=== PATIENT | male | born 1975 | race Caucasian/White ===

== ENCOUNTER → 2020-09-18 13:34 | Outpatient (BNVA) | payer OTHER, SELFPAY | PROVIDERS: PCP Nurse Practitioner Family; Referring Provider Nurse Practitioner Family; Visit Provider Internal Medicine Cardiovascular Disease | DX: I49.3 Ventricular premature depolarization (principal) | CPT/HCPCS: 93005; 99212 ==

== ENCOUNTER 2020-10-06 19:15 | Emergency (ER) | payer OTHER, SELFPAY ==
[2020-10-06 19:16] VITALS: BP 121/85; PULSE 82; RESP 16; TEMP 36.8; O2SAT 97; BMI 28.5
[2020-10-06 19:44] VITALS: BP 106/72; PULSE 74
--- NOTE | 2020-10-06 19:45 | ED_ITS ---
HPI - Nausea/Vomiting/Diarrhea General Chief complaint: Nausea/Vomiting/Diarrhea Stated complaint: Nausea Time Seen by Provider: 10/06/20 19:41 Source: patient Mode of arrival: ambulatory Limitations: no limitations History of Present Illness HPI Narrative: 44-year-old male, started with nonbloody watery diarrhea 5 days ago, with intermittent nausea for the past 5 days, no vomiting, no abdominal pain. Patient just had a new puppy in the house 5 days ago and wonder if there is correlation between his symptoms and having the new dog in the house, patient also stated that he has 10 lb of unintentional weight loss over the past month. Patient overall feel flu-like symptoms, patient decline exposure to sick cont acts or recent travel. Patient states that he in the process of looking for PCP. Related Data Previous Rx's Medication Instructions Recorded flecainide 100 mg tablet 100 mg PO BID #60 tab 09/18/20 propranolol 80 mg capsule,24 80 mg PO .q12 #60 cap 09/18/20 hr,extended release Allergies Allergy/AdvReac Type Severity Reaction Status Date / Time penicillin V Allergy Unknown hot,nausea,dizzy, Verified 10/06/20 19:22 rash Penicillins [PENICILLINS] AdvReac Intermediate NAUSEA/HEADACHE Verified 10/06/20 19:22 FEVER Review of Systems Review of Systems: All other systems are reviewed and are negative Constitutional: Reports as per HPI and Reports no additional constitutional complaints Eyes: Reports as per HPI and Reports no additional eye complaints Reports system reviewed and no additional complaints, except as documented Cardiovascular: Reports as per HPI and Reports no additional cardiovascular complaints Respiratory: Reports as per HPI and Reports no additional respiratory complaints Gastrointestinal: Reports as per HPI and Reports no additional gastrointestinal complaints Genitourinary: Reports no additional female genitourinary complaints Musculoskeletal: Reports no additional musculoskeletal complaints Skin/Breast: Reports system reviewed and no additional complaints, except as docu Psychiatric: Reports no additional psychiatric complaints Endocrine: Reports no additional endocrine complaints Hematologic/Lymphatic: Reports no additional hematologic/lymphatic complaints Allergic/Immunologic: Reports no additional allergic/immunologic complaints Reports system reviewed and no additional complaints, except as documented and Reports Abnormal speech present [facility] Past Medical History Medical History (Updated 10/06/20 @ 22:42 by Wyatt Blair MD) History of ear infections Psoriasis PVC (premature ventricular contraction) Surgical History Hx of tonsillectomy Social History Social History (Updated 09/18/20 @ 13:50 by Rosalia Osorio [facility]) Alcohol intake: unknown Smoking Status: Current every day smoker Use of substances other than those prescribed or required for medical reasons: Yes Substance Use Type: Marijuana Advance Directives: No Advance Directives Information Provided: Yes Physical Exam Vital Signs: Vital Signs: Last Vital Signs Temp 98.3 F 10/06/20 22:00 Pulse 90 10/06/20 22:00 Resp 15 10/06/20 22:00 BP 118/94 H 10/06/20 22:00 Pulse Ox 98 10/06/20 22:00 Body Mass Index 28.5 Vital signs have been reviewed as normal and appeared to be correct. Blood pressure normal. Heart rate normal. Respiration rate normal. Temperature normal. Oxygen saturation normal. Appearance: Alert. Oriented X3. No acute distress. Head: Normal external exam. Normocephalic. Atraumatic. No Cantrell signs noted. No raccoon eyes noted Eyes: PERRLA. EOMI. Conjunctiva and sclera normal. Eyelids normal. ENT: EAC normal. TM's Normal. Pharynx normal. Uvula midline. Moist mucous membranes. No trismus noted. No drooling noted. No muffled voice noted. Neck: Normal inspection. Neck supple. FROM. No adenopathy. Thyroid Normal. No meningeal signs. No neck mass noted. CVS: Normal heart rate and rhythm. Heart sound normal. No murmurs noted. Pulses normal throughout. Respiratory: No respiratory distress. Painless inspiration. Breath sounds normal. No wheezes/rales/rhonchi noted. Chest nontender. No accessory muscle usage noted or decreased air movement noted. Abdomen: Soft and nontender. Bowel sounds normal in all 4 quadrants. No distention noted. No organomegaly noted. No visible injury noted. Back: No CVA tenderness. Full range of motion noted. Skin: Skin warm and dry. Normal skin color. Normal skin turgor. No rashes/lesions/lacerations noted. Extremities: No lower extremity edema. Extremities exhibit normal range of motion. Extremities nontender. Neuro: Oriented X 3. No motor deficit. No sensory deficit. Reflexes normal. Course Course Course Narrative: This is a 44-year-old male who came in with 5 days of nonspecific symptoms of intermittent nonbloody water diarrhea and nausea, juan ent appear anxious during the interview, patient do not currently have PCP. Patient was instructed to find PCP by calling insurance company, no further medical intervention is needed at this point, will discharge the patient. MDM - Nausea/Vomiting/Diarrhea Lab Data Result diagrams: 10/06/20 20:08 10/06/20 20:08 Labs: Lab Results 10/06/20 10/06/20 10/06/20 Range/Units 20:08 20:08 20:08 WBC 9.9 (4.8-10.8) X10*3/uL RBC 4.73 (4.60-5.80) X10*6/uL Hgb 15.5 (14.0-18.0) g/dl Hct 44.4 (42-52) % MCV 93.9 (80-98) fL MCH 32.8 (27.0-33.0) pg MCHC 34.9 (31.0-36.0) g/dl RDW 12.0 (11.0-16.0) % Plt Count 172 (160-400) X10*3/uL MPV 10.5 (9.4-12.4) fL Immature Gran % (Auto) 0.4 (0.0-0.4) % Neut % (Auto) 74.4 H (45-73) % Lymph % (Auto) 15.8 L (20-40) % [place] % (Auto) 7.8 (2-11) % Eos % (Auto) 1.3 (0-4) % Baso % (Auto) 0.3 (0-2) % Lymph # (Auto) 1.6 (1.2-4.9) X10*3/uL [place] # (Auto) 0.8 (0.1-1.2) X10*3/uL Eos # (Auto) 0.1 (0.0-0.4) X10*3/uL Baso # (Auto) 0.0 (0.0-0.2) X10*3/uL Abs Immat Gran (auto) 0.04 H (0.00-0.03) X10*3/uL Absolute Neuts (auto) 7.3 (2.0-8.3) X10*3/uL Absolute Nucleated RBC 0.000 (0.0-0.012) X10*3/uL Nucleated RBC % (auto) 0.0 (0.0-0.2) /100WBC Sodium 139 (135-145) mmol/L Potassium 3.9 (3.3-5.1) mmol/l Chloride 106 (96-108) mmol/L Carbon Dioxide 26 (22-29) mmol/L Anion Gap 11 L (12-20) BUN 14 (9-16) mg/dL Creatinine 1.01 (0.5-1.4) mg/dL Estim Creat Clear Calc 104.3 Estimated GFR > 60 Random Glucose 118 H (60-115) mg/dL Calcium 8.5 (8.4-10.2) mg/dL Total Bilirubin 0.8 (0.0-1.0) mg/dL Direct Bilirubin 0.3 (0.0-0.5) mg/dL AST 23 (5-37) U/L ALT 20 (0-40) U/L Alkaline Phosphatase 93 (39-117) U/L Total Protein 6.2 L (6.5-8.0) g/dL Albumin 4.2 (3.5-5.0) g/dL Lipase 53 (8-78) U/L Urine Color Urine Appearance Urine pH (5.0-8.0) Ur Specific [place] (1.005-1.025) Urine Protein (NEG-TRACE) MG/DL Urine Glucose (UA) (NEG) MG/DL Urine Ketones (NEG) MG/DL Urine Blood (NEG) Urine Nitrite (NEG) Ur Leukocyte Esterase (NEG) Coronavirus (PCR) NEGATIVE (Negative) Influenza Type A (PCR) NEGATIVE (Negative) Influenza Type B (PCR) NEGATIVE (Negative) RSV RNA Qual (PCR) NEGATIVE (Negative) 10/06/20 Range/Units 20:08 WBC (4.8-10.8) X10*3/uL RBC (4.60-5.80) X10*6/uL Hgb (14.0-18.0) g/dl Hct (42-52) % MCV (80-98) fL MCH (27.0-33.0) pg MCHC (31.0-36.0) g/dl RDW (11.0-16.0) % Plt Count (160-400) X10*3/uL MPV (9.4-12.4) fL Immature Gran % (Auto) (0.0-0.4) % Neut % (Auto) (45-73) % Lymph % (Auto) (20-40) % [place] % (Auto) (2-11) % Eos % (Auto) (0-4) % Baso % (Auto) (0-2) % Lymph # (Auto) (1.2-4.9) X10*3/uL [place] # (Auto) (0.1-1.2) X10*3/uL Eos # (Auto) (0.0-0.4) X10*3/uL Baso # (Auto) (0.0-0.2) X10*3/uL Abs Immat Gran (auto) (0.00-0.03) X10*3/uL Absolute Neuts (auto) (2.0-8.3) X10*3/uL Absolute Nucleated RBC (0.0-0.012) X10*3/uL Nucleated RBC % (auto) (0.0-0.2) /100WBC Sodium (135-145) mmol/L Potassium (3.3-5.1) mmol/l Chloride (96-108) mmol/L Carbon Dioxide (22-29) mmol/L Anion Gap (12-20) BUN (9-16) mg/dL Creatinine (0.5-1.4) mg/dL Estim Creat Clear Calc Estimated GFR Random Glucose (60-115) mg/dL Calcium (8.4-10.2) mg/dL Total Bilirubin (0.0-1.0) mg/dL Direct Bilirubin (0.0-0.5) mg/dL AST (5-37) U/L ALT (0-40) U/L Alkaline Phosphatase (39-117) U/L Total Protein (6.5-8.0) g/dL Albumin (3.5-5.0) g/dL Lipase (8-78) U/L Urine Color YELLOW Urine Appearance CLEAR Urine pH 6.5 (5.0-8.0) Ur Specific [place] 1.025 (1.005-1.025) Urine Protein NEG (NEG-TRACE) MG/DL Urine Glucose (UA) NEG (NEG) MG/DL Urine Ketones 5 (NEG) MG/DL Urine Blood NEG (NEG) Urine Nitrite NEG (NEG) Ur Leukocyte Esterase NEG (NEG) Coronavirus (PCR) (Negative) Influenza Type A (PCR) (Negative) Influenza Type B (PCR) (Negative) RSV RNA Qual (PCR) (Negative) Discharge Plan Discharge Clinical Impression: Diarrhea Qualifiers: Diarrhea type: unspecified type Qualified Code(s): R19.7 - Diarrhea, unspecified Patient Disposition: Home, Self-Care Instructions: Acute Diarrhea (ED) Prescriptions: No Action propranolol 80 mg capsule,extended release 24 hr 80 mg PO .q12 Qty: 60 RF: 5 flecainide 100 mg tablet 100 mg PO BID Qty: 60 RF: 5 Referrals: Jasper Mims FNP-BC [Primary Care Provider] - 2 days
[2020-10-06 19:52] VITALS: BP 116/80; BP 122/94; PULSE 80; PULSE 81
[2020-10-06 19:54] VITALS: BP 122/94; PULSE 90; RESP 15; O2SAT 98
[2020-10-06] MEDS: 0.9 % Sodium Chloride 1,000 ML 999 ML IVCONT (20:10)
[2020-10-06 20:16] LABS: Basophils Percent Auto 0.3 % (0-2); Eosinophils Absolute Auto 0.1 X10*3/uL (0.0-0.4); Eosinophils Percent Auto 1.3 % (0-4); Hematocrit 44.4 % (42-52); Hemoglobin 15.5 g/dl (14.0-18.0); Imm Gran Abs Auto 0.04 X10*3/uL (0.00-0.03); Imm Gran Pct Auto 0.4 % (0.0-0.4); Lymphocytes Absolute Auto 1.6 X10*3/uL (1.2-4.9); Lymphocytes Percent Auto 15.8 % (20-40); MANUAL DIFF FLAG NO; Mean Corpuscular HGB Conc 34.9 g/dl (31.0-36.0); Mean Corpuscular Hemoglobin 32.8 pg (27.0-33.0); Mean Corpuscular Volume 93.9 fL (80-98); Mean Platelet Volume 10.5 fL (9.4-12.4); Monocytes Absolute Auto 0.8 X10*3/uL (0.1-1.2); Monocytes Percent Auto 7.8 % (2-11); Neutrophils Absolute Auto 7.3 X10*3/uL (2.0-8.3); Neutrophils Percent Auto 74.4 % (45-73); Platelet Count 172 X10*3/uL (160-400); Red Blood Count 4.73 X10*6/uL (4.60-5.80); White Blood Count 9.9 X10*3/uL (4.8-10.8)
[2020-10-06 20:18] LABS: Glucose Urine UA NEG (NEG); Leukocyte Esterase Urine NEG (NEG); Nitrite Urine NEG (NEG); PH 6.5 (5.0-8.0); Specific Gravity - Urine 1.025 (1.005-1.025); Urine Blood NEG (NEG); Urine Ketones 5 MG/DL (NEG); Urine Protein NEG (NEG-TRACE)
[2020-10-06 20:19] LABS: Appearance Urine CLEAR; Color Urine YELLOW
[2020-10-06 20:47] LABS: Alanine Aminotransferase 20 U/L (0-40); Albumin Level 4.2 g/dL (3.5-5.0); Alkaline Phosphatase 93 U/L (39-117); Anion Gap 11 (12-20); Aspartate Amino Transferase 23 U/L (5-37); Bilirubin Direct 0.3 mg/dL (0.0-0.5); Bilirubin Total 0.8 mg/dL (0.0-1.0); Blood Urea Nitrogen 14 mg/dL (9-16); Calcium 8.5 mg/dL (8.4-10.2); Carbon Dioxide 26 mmol/L (22-29); Chloride 106 mmol/L (96-108); Creatinine Clr Calc Pharmacy 104.3; Estimated Glomerular Filt Rate > 60; Glucose Random 118 mg/dL (60-115); Lipase 53 U/L (8-78); Potassium 3.9 mmol/l (3.3-5.1); Sodium 139 mmol/L (135-145); Total Protein 6.2 g/dL (6.5-8.0)
[2020-10-06 20:54] LABS: Influenza A PCR NEGATIVE (Negative); Influenza B PCR NEGATIVE (Negative); Resp Syncy Virus RNA Qual PCR NEGATIVE (Negative); SARS COV2 PCR INHOUSE NEGATIVE (Negative)
[2020-10-06 22:00] VITALS: BP 118/94; PULSE 90; RESP 15; TEMP 36.8; O2SAT 98
== END 2020-10-06 23:01 | disposition home or self-care (01) ==
PROVIDERS: Emergency Provider Emergency Medicine; PCP Nurse Practitioner Family
DX: R19.7 Diarrhea, unspecified (principal); F17.200 Nicotine dependence, unspecified, uncomplicated; Z71.6 Tobacco abuse counseling; Z20.828 Contact with and (suspected) exposure to other viral communicable diseases; Z79.899 Other long term (current) drug therapy
CPT/HCPCS: 0241U; 36415; 80048; 80076; 81003; 83690; 85025; 96360; 99284

== ENCOUNTER 2021-06-18 15:56 | Emergency (ER) | payer OTHER, SELFPAY ==
[2021-06-18 16:17] VITALS: BP 136/99; PULSE 83; RESP 18; TEMP 36.9; O2SAT 96; BMI 28.3
== END 2021-06-18 17:30 | disposition left against medical advice (07) ==
PROVIDERS: Emergency Provider Emergency Medicine; PCP Nurse Practitioner Family
DX: H92.01 Otalgia, right ear (principal); R11.0 Nausea; L60.0 Ingrowing nail
CPT/HCPCS: 99281; 99282

== ENCOUNTER → 2021-09-11 13:56 | Outpatient (BNVA) | payer OTHER, SELFPAY | PROVIDERS: PCP Nurse Practitioner Family; Referring Provider Nurse Practitioner Family; Visit Provider Nurse Practitioner Family | DX: I49.3 Ventricular premature depolarization (principal); R00.2 Palpitations | CPT/HCPCS: 93005 ==

== ENCOUNTER 2023-04-09 11:58 | Outpatient (REF) | payer OTHER, SELFPAY ==
[2023-04-09 13:55] LABS: MANUAL DIFF FLAG NO
[2023-04-09 14:30] LABS: Anion Gap 11 (12-20); Blood Urea Nitrogen 14 mg/dL (9-16); Calcium 9.5 mg/dL (8.4-10.2); Carbon Dioxide 24 mmol/L (22-29); Chloride 111 mmol/L (96-108); Cholesterol 130 mg/dL; Estimated Glomerular Filt Rate > 60; Glucose Random 95 mg/dL (60-115); HDL Cholesterol 29 mg/dL; LDL Cholesterol Calculated 88 mg/dl; Potassium 4.1 mmol/L (3.3-5.1); Sodium 142 mmol/L (135-145); Triglycerides 66 mg/dL
[2023-04-09 14:35] LABS: Basophils Percent Auto 0.5 % (0-2); Eosinophils Absolute Auto 0.1 X10*3/uL (0.0-0.4); Hematocrit 46.1 % (42.0-52.0); Hemoglobin 15.6 g/dl (14.0-18.0); Imm Gran Abs Auto 0.02 X10*3/uL (0.00-0.03); Imm Gran Pct Auto 0.3 % (0.0-0.4); Lymphocytes Absolute Auto 1.4 X10*3/uL (1.2-4.9); Lymphocytes Percent Auto 23.9 % (20-40); Mean Corpuscular HGB Conc 33.8 g/dl (31.0-36.0); Mean Corpuscular Hemoglobin 32.3 pg (27.0-33.0); Mean Corpuscular Volume 95.4 fL (80.0-98.0); Mean Platelet Volume 11.4 fL (9.4-12.4); Monocytes Absolute Auto 0.5 X10*3/uL (0.1-1.2); Monocytes Percent Auto 8.4 % (2-11); Neutrophils Absolute Auto 3.8 x10*3/uL (2.0-8.3); Neutrophils Percent Auto 64.9 % (45-73); Platelet Count 143 X10*3/uL (160-400); Red Blood Count 4.83 X10*6/uL (4.60-5.80); Red Cell Distribution Width 12.8 % (11.0-16.0); White Blood Count 5.9 X10*3/uL (4.8-10.8)
[2023-04-11 03:42] LABS: HBS Num1 0.26 mIU/mL (0-7.99); HBc Num1 0.08 S/CO (0.00-0.79); HBsAGNum1 0.44 S/CO (0.00-0.99); Hepatitis B Core Antibody Nonreactive (Nonreactive); Hepatitis B Surface Antigen Negative (Negative); ~Hepatitis B Surface Antibody NONREACTIVE (Nonreactive); ~Hepatitis C Antibody Nonreactive (Nonreactive)
[2023-04-11 17:33] LABS: TS Negative Control Passed; TS Panel A 0; TS Panel B 0; TS Positive Control Passed; TSpotTB Negative (Negative)
== END 2023-04-09 11:59 | disposition home or self-care (01) ==
LOC: HO.HMGCLDS 11:58
PROVIDERS: PCP Nurse Practitioner Family; Visit Provider Dermatology
DX: L40.0 Psoriasis vulgaris (principal)
CPT/HCPCS: 36415; 80048; 80061; 85025; 86481; 86704; 86706; 86803; 87340

== ENCOUNTER 2023-05-01 15:12 | Outpatient (REF) | payer OTHER, SELFPAY ==
[2023-05-01 17:16] LABS: Amphetamine Screen Urine Not Detected (Not Detect); Barbiturates, Urine Not Detected (Not Detect); Benzodiazepines Screen Urine Not Detected (Not Detect); Cannabinoid Screen Urine POSITIVE (Not Detect); Cocaine Screen Urine Not Detected (Not Detect); Fentanyl, urine Not Detected (Not Detect); Opiate Screen Urine Not Detected (Not Detect); Phencyclidine Screen Urine Not Detected (Not Detect)
[2023-05-01 17:17] LABS: Alanine Aminotransferase 26 U/L (0-40); Albumin Level 4.2 g/dL (3.5-5.0); Alkaline Phosphatase 94 U/L (39-117); Anion Gap 11 (12-20); Aspartate Amino Transferase 37 U/L (5-37); Bilirubin Total 0.4 mg/dL (0.0-1.0); Blood Urea Nitrogen 12 mg/dL (9-16); Calcium 9.5 mg/dL (8.4-10.2); Carbon Dioxide 26 mmol/L (22-29); Chloride 109 mmol/L (96-108); Estimated Glomerular Filt Rate > 60; Glucose Random 83 mg/dL (60-115); Potassium 3.9 mmol/L (3.3-5.1); Sodium 142 mmol/L (135-145); Total Protein 6.7 g/dL (6.5-8.0)
[2023-05-01 17:37] LABS: T4 Thyroxine 6.6 ug/dL (4.5-12.0)
[2023-05-04 08:13] LABS: Triiodothyronine T3 Free 3.6 pg/mL (2.3-4.2)
== END 2023-05-01 15:13 | disposition home or self-care (01) ==
LOC: HO.HMGCLDS 15:12
PROVIDERS: Visit Provider Nurse Practitioner Psychiatric/Mental Health
DX: Z79.899 Other long term (current) drug therapy (principal)
CPT/HCPCS: 80053; 80307; 84436; 84481

== ENCOUNTER 2023-11-20 19:54 | Emergency (ER) | payer OTHER, SELFPAY ==
[2023-11-20 20:16] VITALS: BP 132/97; PULSE 80; RESP 20; TEMP 36.6; O2SAT 97; BMI 28.4
[2023-11-20 21:11] LABS: Appearance Urine Clear; Color Urine Dark Yellow; Glucose Urine UA Negative (Negative); Leukocyte Esterase Urine Negative (Negative); Nitrite Urine Negative (Negative); PH 5.5 (5.0-9.0); Specific Gravity - Urine >= 1.030 (1.005-1.025); Urine Blood Negative (Negative); Urine Ketones Trace mg/dL (Negative); Urine Protein Negative (Neg-Trace)
--- NOTE | 2023-11-20 22:24 | ED_ITS ---
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 Patient also been having a difficulty urinating with painful ejaculation for the past year. Related Data Previous Rx's Medication Instructions Recorded levocetirizine 5 mg tablet (Xyzal) 5 mg PO DAILY 14 days #14 tabs 11/09/22 prednisone 20 mg tablet 20 mg PO DAILY 5 days #5 tabs 11/09/22 sulfamethoxazole 800 1 tab PO Q12H #20 tabs 11/20/22 mg-trimethoprim 160 mg tablet (Bactrim DS) amoxicillin 875 mg-potassium 1 tab PO Q12H 10 days #20 tabs 11/21/22 clavulanate 125 mg tablet propranolol 120 mg capsule,24 120 mg PO DAILY #90 caps 09/23/23 hr,extended release flecainide 100 mg tablet 100 mg PO BID 90 days #180 tabs 11/13/23 amoxicillin 875 mg-potassium 1 tab PO BID #14 tabs 11/20/23 clavulanate 125 mg tablet ofloxacin 0.3 % ear drops 10 drp otic (ears) DAILY 7 days 11/20/23 #10 mL oxycodone 5 mg tablet 5 mg PO Q8H PRN pain #5 tabs 11/20/23 Allergies Allergy/AdvReac Type Severity Reaction Status Date / Time penicillin V Allergy Unknown hot,nausea,dizzy, Verified 11/20/22 15:57 rash Penicillins [PENICILLINS] AdvReac Intermediate NAUSEA/HEADACHE Verified 11/20/22 15:57 FEVER Review of Systems Review of Systems: All other systems are reviewed and are negative Constitutional: Reports as per HPI and Reports no additional constitutional complaints Eyes: Reports as per HPI and Reports no additional eye complaints Reports system reviewed and no additional complaints, except as documented Cardiovascular: Reports as per HPI and Reports no additional cardiovascular complaints Respiratory: Reports as per HPI and Reports no additional respiratory complaints Gastrointestinal: Reports as per HPI and Reports no additional gastrointestinal complaints Genitourinary: Reports no additional female genitourinary complaints Musculoskeletal: Reports no additional musculoskeletal complaints Skin/Breast: Reports system reviewed and no additional complaints, except as docu Psychiatric: Reports no additional psychiatric complaints Endocrine: Reports no additional endocrine complaints Hematologic/Lymphatic: Reports no additional hematologic/lymphatic complaints Allergic/Immunologic: Reports no additional allergic/immunologic complaints Reports system reviewed and no additional complaints, except as documented and Reports Abnormal speech present [facility] Past Medical History Medical History Psoriasis History of ear infections PVC (premature ventricular contraction) Surgical History Hx of tonsillectomy Social History Social History Alcohol intake: unknown Substance Use Type: Marijuana Advance Directives: No Advance Directives Information Provided: No Physical Exam ED Vital Signs: Vital Signs - 24 hr 11/20/23 20:16 Temperature 97.8 F Pulse Rate 80 Respiratory Rate 20 Blood Pressure 132/97 H Pulse Oximetry 97 Oxygen Delivery Method Room Air BMI result Body Mass Index 28.4 Vital signs have been reviewed and appear to be correct. Blood pressure elevated. Heart rate normal. Respiratory rate normal. Temperature normal. Oxygen saturation normal. Appearance: Alert. Oriented X3. No acute distress. Head: Normal external exam. Normocephalic. Atraumatic. No Cantrell signs noted. No raccoon eyes noted Eyes: PERRLA. EOMI. Conjunctiva and sclera normal. Eyelids normal. ENT: Old scars on bilateral TM, swelling and tenderness in the right external auditory canal, erythema of the right TM, Pharynx normal. Uvula midline. Moist mucous membranes. No trismus noted. No drooling noted. No muffled voice noted. Neck: Normal inspection. Neck supple. FROM. No adenopathy. Thyroid Normal. No meningeal signs. No neck mass noted. CVS: Normal heart rate and rhythm. Heart sound normal. No murmurs noted. Pulses normal throughout. Respiratory: No respiratory distress. Painless inspiration. Breath sounds normal. No wheezes/rales/rhonchi noted. Chest nontender. No accessory muscle usage noted or decreased air movement noted. Abdomen: Soft and nontender. Bowel sounds normal in all 4 quadrants. No distention noted. No organomegaly noted. No visible injury noted. Back: No CVA tenderness. Full range of motion noted. Skin: Skin warm and dry. Normal skin color. Normal skin turgor. No rashes/lesions/lacerations noted. Extremities: No lower extremity edema. Extremities exhibit normal range of motion. Extremities nontender. Neuro: Oriented X 3. Cranial nerve exam: II-XII are grossly intact No motor deficit. No sensory deficit. Reflexes normal. Course Reevaluation(s) Reevaluation #1: Chronic dysuria and painful ejaculation was unremarkable UA patient to follow up with Urology Dr. Rodriguez. Acute on chronic ear infection will treat with ofloxacin ear drops and Augmentin (reported that he used Augmentin in the past without allergic reaction). Oxycodone # 10. For pain control. Time: 22:29 Medical Decision Making Differential Diagnosis Differential Diagnoses: The differential diagnosis associated with the presentation includes (UTI, otitis externa, otitis interna, perforated TM.) Admission/Observation Consideration of admission/observation: Escalation of care including admission/observation considered Lab Data MDM Lab Attestation statement: I reviewed the patient's lab results. Labs: Lab Results 11/20/23 Range/Units 20:54 Urine Color Dark Yellow Urine Appearance Clear Urine pH 5.5 (5.0-9.0) Ur Specific [place] >= 1.030 H (1.005-1.025) Urine Protein Negative (Neg-Trace) mg/dL Urine Glucose (UA) Negative (Negative) mg/dL Urine Ketones Trace (Negative) mg/dL Urine Blood Negative (Negative) Urine Nitrite Negative (Negative) Ur Leukocyte Esterase Negative (Negative) Discharge Plan Discharge Clinical Impression: Dysuria, Otitis media, Otitis externa Patient Disposition: Home, Self-Care Instructions: Otitis Externa (ED), Ear Infection (ED), Dysuria (ED) Prescriptions: New amoxicillin-pot clavulanate 875-125 mg tablet 1 tab PO BID Qty: 14 0RF ofloxacin 0.3 % drops 10 drp otic (ears) DAILY 7 Days Qty: 10 0RF oxycodone 5 mg tablet 5 mg PO Q8H PRN (Reason: pain) Qty: 5 0RF Rx Instructions: Partial Fill upon patient request. No Action propranolol 120 mg capsule,extended release 24 hr 120 mg PO DAILY Qty: 90 0RF Rx Instructions: LAST REFILL - OVERDUE FOR APPT. PLEASE CALL [phone] TO SCHEDULE. You can also opt to get future refills from your PCP. Thank you. flecainide 100 mg tablet 100 mg PO BID 90 Days Qty: 180 0RF Rx Instructions: LAST REFILL. OVERDUE FOR APPT. PLEASE CALL [phone] TO SCHEDULE AN APPT SO WE CAN REFILL THIS MED. prednisone 20 mg tablet 20 mg PO DAILY 5 Days Qty: 5 0RF levocetirizine [Xyzal] 5 mg tablet 5 mg PO DAILY 14 Days Qty: 14 0RF sulfamethoxazole-trimethoprim [Bactrim DS] 800-160 mg tablet 1 tab PO Q12H Qty: 20 0RF amoxicillin-pot clavulanate 875-125 mg tablet 1 tab PO Q12H 10 Days Qty: 20 0RF Referrals: Srinivas Rodriguez MD [Physician] - Jasper Mims [employer]- [Primary Care Provider] - Blayne Martell [Physician] -
[2023-11-20] MEDS: oxyCODONE HCl Immed Release 5 MG TABLET PO (23:01)
[2023-11-20] MEDS: Amoxicillin/Potassium Clav 875 MG TABLET PO (23:01)
== END 2023-11-20 23:22 | disposition home or self-care (01) ==
PROVIDERS: Emergency Provider Emergency Medicine; PCP Nurse Practitioner Family
DX: H66.91 Otitis media, unspecified, right ear (principal); H60.91 Unspecified otitis externa, right ear; H92.01 Otalgia, right ear; R50.9 Fever, unspecified; R30.0 Dysuria; N53.12 Painful ejaculation; R39.198 Other difficulties with micturition
CPT/HCPCS: 81003; 99283

== ENCOUNTER 2024-01-12 13:51 | Outpatient (AMB) | payer OTHER, SELFPAY ==
--- NOTE | 2024-01-12 14:17 | MHC.OFFVIS ---
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 Accompanied by: Self / Same As Patient Allergies penicillin V Allergy (Unknown, Verified 01/12/24 20:54) hot,nausea,dizzy, rash Penicillins [PENICILLINS] Adverse Reaction (Intermediate, Verified 01/12/24 20:54) NAUSEA/HEADACHE FEVER Medication List - Last Reconciled 01/12/24 by AKBAR Gutierrez flecainide 100 mg PO BID 90 days gabapentin 1,200 mg PO BID ixekizumab (Taltz Autoinjector) mg subcut meloxicam 15 mg PO DAILY 30 days propranolol ER 120 mg PO DAILY sulfamethoxazole-trimethoprim 800-160 mg (Bactrim DS) 1 tab PO BID 14 days tamsulosin 0.4 mg PO BEDTIME 90 days HPI HPI Comments History of Present Illness Details Pasquale is a very pleasant 48-year-old male patient of Dr. Mims. He has a past medical history of psoriasis, recurrent ear infections, and PVC's. He presents to the office today as a new patient for ongoing lower urinary tract symptoms. Patient reports a longstanding history of urinary hesitancy, dysuria, retrograde ejaculation, and painful ejaculation. Patient reports symptoms have been present for months however feels they are intermittent however feels lately they have been worsening. He discusses having followed up with [facility] [facility] [place] ongoing recurrent ear infections he has been experiencing at which time he discussed his urological issues and recommendations were made for urology referral for further assessment evaluation. Discussed at length potential causes for lower urinary tract symptoms patient is experiencing. In office JAVI performed boggy prostate noted. Patient extremely tender on left side of the prostate when palpated otherwise no nodules or masses palpated. In office urinalysis results reviewed with the patient today. PVR 47 mL. When asked he denies incontinence, nocturia, hematuria, foul smelling urine, changes to urinary stream, flank pain, fever, and or chills. He otherwise offers no other issues or concerns at this time. [facility] Medical History Psoriasis History of ear infections PVC (premature ventricular contraction) Surgical History Hx of tonsillectomy Social History Alcohol intake: unknown Substance Use Type: Marijuana Review of Systems Const Reports as per HPI Eyes Reports no additional complaints ENT Reports as per HPI Card Reports as per HPI Resp Reports no additional complaints GI Reports no additional complaints Reports as per HPI Musc Reports no additional complaints Skin/Breast Reports as per HPI Neuro Reports no additional complaints Psych Reports no additional complaints Endo Reports no additional complaints Tito/Lymph Reports no additional complaints Aller/Immun Reports no additional complaints Physical Exam Const General: cooperative, healthy appearing, comfortable, no acute distress, well developed, alert and awake Orientation/consciousness: patient oriented x3 Limitations: no limitations HEENT Head: Yes normal to inspection, Yes normocephalic and Yes atraumatic Ears: hearing grossly normal bilaterally Eyes General: appearance normal, both eyes and all related structures Neck Neck: Yes normal visual inspection and Yes trachea midline Chest Chest palpation & inspection: normal inspection of the chest Resp Effort & Inspection: normal respiratory effort and able to speak in complete sentences Cardio Rate: regular rate GI Inspection: Yes normal to inspection General: Yes no CVA tenderness Back/Spine/Pelvis Back: no CVA tenderness Skin General skin exam: no rashes or lesions noted Neuro General: patient oriented x3 Extrem General: Yes normal to inspection Psych Appearance: grossly normal and well kempt Mental Status: mental status grossly normal Speech and movement: Normal speech and movement present and Clear speech present Affect: normal affect Attitude: cooperative Thought process: Normal thought process present Thought content: Normal thought content present Insight: Fair insight present (Psych) Judgement: Fair judgement present (Psych) Office Procedures Post Void Residual Post Residual Void Post Void Residual (PVR): 47 [id number] Void Residual by ultrasound Results AMB Urinalysis, Automated UA Leukoctes 15 Connor/uL Last Edit by Janusz Connors on 01/12/24 14:23 UA Nitrite Negative Last Edit by Janusz Connors on 01/12/24 14:23 UA Urobilinogen 0.2 mg/dL Last Edit by Janusz Connors on 01/12/24 14:23 UA Protein 30 mg/dL Last Edit by Janusz Connors on 01/12/24 14:23 UA pH 5.5 Last Edit by Janusz Vallecillonishant on 01/12/24 14:23 UA Blood 0 Otf/uL Last Edit by Nicolawilian Ruth Annnishant on 01/12/24 14:23 UA Specific [employer] 1.030 Last Edit by Nicolawilian Ruth Annnishant on 01/12/24 14:23 UA Ketone Positive Last Edit by Nicolawilian Ruth Annnishant on 01/12/24 14:23 UA Bilirubin 0 mg/dL Last Edit by Cheyennezainab Ruth Annnishant on 01/12/24 14:23 UA Glucose 0 mg/dL Last Edit by Nicolawilian Ruth Annnishant on 01/12/24 14:23 Results Reviewed Results Reviewed: Laboratory Last Values Urine pH (Auto) 5.5 01/12/24 14:20 Specific [employer] (Auto) 1.030 01/12/24 14:20 Urine Protein (Auto) 30 mg/dL 01/12/24 14:20 Glucose (UA)(Auto) 0 mg/dL 01/12/24 14:20 Urine Ketones (Auto) Positive 01/12/24 14:20 Urine Blood (Auto) 0 Otf/uL 01/12/24 14:20 Urine Nitrite (Auto) Negative 01/12/24 14:20 Urine Bilirubin (Auto) 0 mg/dL 01/12/24 14:20 Urine Urobilinogen (Auto) 0.2 mg/dL 01/12/24 14:20 Leukocyte Esterase (Auto) 15 Connor/uL 01/12/24 14:20 Assessment & Plan Assessment & Plan (1) Dysuria: Code(s): R30.0 - Dysuria (2) Prostatitis: Code(s): N41.9 - Inflammatory disease of prostate, unspecified (3) History of urinary hesitancy: Code(s): Z87.898 - Personal history of other specified conditions Plan In office urinalysis results reviewed with the patient today; as noted above. Discussed at length potential causes of prostatitis. Discussed at length potential causes for lower urinary tract symptoms patient is experiencing. Will obtain retroperitoneal ultrasound for further assessment evaluation. Start Mobic, Flomax, and Bactrim as discussed and prescribed. Discussed obtaining PSA 6-8 weeks status post completion of antibiotic therapy. Discussed possible near future in office prostate massage for Microgen testing. Discussed possible near future in office cystoscopy for further assessment evaluation. Discussed, educated, and stressed the importance of drinking plenty of water daily. Follow-up in 2 months with imaging and labs to be completed prior; or sooner with any issues, concerns, and or questions. Orders: Orders AMB Urinalysis Automated Today Z13.9 - Encounter for screening, unspecified US retroperitoneal comp Today N41.9 - Inflammatory disease of prostate, unspecified, R30.0 - Dysuria, Z87.898 - Personal history of other specified conditions Prostate Specific Antigen 8 Weeks R30.0 - Dysuria, Z87.898 - Personal history of other specified conditions AMB Post Void Residual by ultrasound Today R30.0 - Dysuria Medications: New sulfamethoxazole-trimethoprim 800-160 mg (Bactrim DS) 1 tab PO BID 14 days 28 tabs 0RF N39.0 - Urinary tract infection, site not specified tamsulosin 0.4 mg PO BEDTIME 90 days 90 caps 1RF N13.8 - Other obstructive and reflux uropathy, N40.1 - Benign prostatic hyperplasia with lower urinary tract symptoms meloxicam 15 mg PO DAILY 30 days 30 tabs 0RF R10.31 - Right lower quadrant pain, R10.32 - Left lower quadrant pain Patient Instructions: The patient had an opportunity to ask questions regarding the treatment plan. All questions were answered. Physical exam, labs, and imaging were discussed and reviewed in detail. As well as risks, benefits, and discussion of treatment choices. No major barriers to understanding were identified. The patient expressed understanding and agreement with the above treatment plan. The patient was made aware they should contact our office by phone for worsening of their current condition, the appearance of new symptoms, or with any questions or concerns. Compliance is encouraged with any medications and follow up testing that is ordered. It is a privilege to be allowed the opportunity to participate in? your urological care.? Again, if you have any questions or concerns If you have any questions or concerns please do not hesitate to contact me. The office is [phone]. This note is constructed using voice recognition software. 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 Yours sincerely, KENTON Gutierrez-YUSEF Coding Level of Care Code New Pt Level 4 (15479) Diagnoses Dysuria R30.0 Prostatitis N41.9 History of urinary hesitancy Z87.898 CPT Codes Post Residual Void - PVR CPT Code: 26192-Phlx Void Residual by ultrasound ([id number])
== END 2024-01-12 14:52 | disposition home or self-care (01) ==
PROVIDERS: PCP Nurse Practitioner Family; Visit Provider Nurse Practitioner Family
DX: R30.0 Dysuria (principal); N41.9 Inflammatory disease of prostate, unspecified; Z87.898 Personal history of other specified conditions
CPT/HCPCS: 99204

== ENCOUNTER → 2024-01-12 13:51 | Outpatient (BNVA) | payer OTHER, SELFPAY | PROVIDERS: PCP Nurse Practitioner Family; Visit Provider Nurse Practitioner Family | DX: R30.0 Dysuria (principal); N41.9 Inflammatory disease of prostate, unspecified; Z87.898 Personal history of other specified conditions | CPT/HCPCS: 51798; 81003; 99202 ==

== ENCOUNTER 2024-02-20 13:04 | Outpatient (AMB) | payer OTHER, SELFPAY ==
[2024-02-20 13:08] VITALS: BP 114/72; PULSE 79; BMI 29.1
--- NOTE | 2024-02-20 13:08 | MHC.OFFVIS ---
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 Required: No Allergies penicillin V Allergy (Unknown, Verified 02/20/24 13:10) hot,nausea,dizzy, rash Penicillins [PENICILLINS] Adverse Reaction (Intermediate, Verified 02/20/24 13:10) NAUSEA/HEADACHE FEVER Medication List - Last Reconciled 02/20/24 by Angela Mcginnis NP-C alfuzosin ER 10 mg PO BEDTIME 30 days flecainide 100 mg PO BID 90 days gabapentin 1,200 mg PO BID ixekizumab (Taltz Autoinjector) mg subcut propranolol ER 120 mg PO DAILY HPI HPI f/up: Details: Pasquale is a 48-year-old male with past medical history of frequent symptomatic PVCs controlled with propranolol and flecainide who presents for follow-up. His last prior visit to our office was 09/11/2021 Today he reports that he continues to take his medications as directed. He finds that if he is late taking his dose of flecainide he will notice his heart palpitations. He says he takes the flecainide once a day, mid day. Takes the propanolol about an hour prior. He denies exertional chest discomfort, shortness of breath, lightheadedness, presyncope, syncope, falls. No PND, orthopnea or edema. He has been going to the gym using cardio and machines. Tolerates without concerning symptoms. He stopped all caffeine and chocolate intake. He quit smoking since his last visit. He finds that if he is anxious, eats spicy food or is late on his medications he will get heart palpitations. [facility] Medical History Psoriasis History of ear infections PVC (premature ventricular contraction) Surgical History Hx of tonsillectomy Social History Alcohol intake: unknown Substance Use Type: Marijuana Review of Systems Const All systems reviewed & are unremarkable except as noted in HPI and below ENT Denies dizziness Card Details: palpitations Reports chest pain, Denies chest pain at rest, Denies chest pain with activity, Denies rapid heart rate, Denies pedal edema, Denies edema, Denies leg edema, Denies lightheadedness, Denies palpitations, Denies dyspnea, Denies dyspnea on exertion and Denies orthopnea Resp Denies cough, Denies dyspnea and Denies dyspnea on exertion GI Denies hematochezia and Denies change in stool character Musc Denies abnormal gait, Denies limited range of motion, Denies muscle cramps, Denies muscle weakness, Denies numbness, Denies radiating pain into limb, Denies stiffness and Denies tingling Neuro Denies abnormal gait, Denies dizziness, Denies numbness and Denies tingling Endo Denies palpitations Physical Exam Vital Signs: Last Vital Signs Pulse 79 02/20/24 13:08 BP 114/72 02/20/24 13:08 BMI result Body Mass Index 29.1 Const General: cooperative, healthy appearing, comfortable and no acute distress Orientation/consciousness: patient oriented x3 Neck Neck: Yes normal visual inspection and Yes no JVD Resp Effort & Inspection: normal respiratory effort Auscultation: clear to auscultation bilaterally, no crackles, no rales, no rhonchi and no wheezes Cardio Jugular venous distension: no JVD Rate: regular rate Rhythm: regular rhythm Heart sounds: S1 normal heart sound present, S2 normal heart sound present, no murmurs and no rubs Neuro General: patient oriented x3 Extrem General: Yes normal to inspection and No no pedal edema Psych Appearance: grossly normal Mental Status: mental status grossly normal Speech and movement: Normal speech and movement present Office Procedures EKG Details: Today, read by me, normal sinus rhythm, no acute ST or T-wave abnormalities, rate 79, QTC 417 millisecond [id number], Complete Assessment & Plan Assessment & Plan (1) PVC (premature ventricular contraction): Code(s): I49.3 - Ventricular premature depolarization Category: Medical Plan: History of very symptomatic PVC's.30 day DARIO done Nov - december 2018 confirmed that symptoms correlated with PVC. Last Holter monitor done 08/31/19 showed SR, average rate 81, isolated PVCs with 1% burden. Last echo done 07/09/19 showed EF 60-65%, no valve abn. He was initially tx with Propanolol and then Flecainide was added with improvement in symptoms. His last prior visit to our office was 09/11/2021. It seems that he still has been getting flecainide since that time. He was due for an EKG in the office 6 months after his last visit and he did not come. At this time I have informed him that I am not able to keep him on flecainide if he is not willing to come for his EKGs every 6 months. He reports palpitations if he is late on his flecainide so he does not want to stop it. He promises to come for EKGs as directed. His EKG done today shows normal sinus rhythm with no acute ST or T-wave abnormalities, QTC 417 milliseconds, rate 79. He is taking flecainide only once daily. Informed him to break the tablet in half and take 50 mg b.i.d.. Continue propranolol. He is due for blood work, will order. Will update echocardiogram and Holter. Plan to call him with results. Cardiology office visit in 1 year, sooner if needed. (2) Palpitation: Code(s): R00.2 - Palpitations Category: Medical Plan: As above Plan Time spent on chart review, documentation, interview and assessment Orders: Orders Complete Blood Count Auto Diff Today I49.3 - Ventricular premature depolarization CA echo transthoracic complete Today I49.3 - Ventricular premature depolarization, R00.2 - Palpitations Comprehensive [place]. Panel Fast Today I49.3 - Ventricular premature depolarization, R00.2 - Palpitations Lipid Panel Today I49.3 - Ventricular premature depolarization, R00.2 - Palpitations ECG 3 day holter monitor Today I49.3 - Ventricular premature depolarization, R00.2 - Palpitations Coding Level of Care Code Est Pt Level 4 (20113) Diagnoses PVC (premature ventricular contraction) I49.3 Palpitation R00.2 CPT Codes EKG - CPT: 59052-[id number], Complete ([id number]) Time Spent (min) 36
== END 2024-02-20 13:45 | disposition home or self-care (01) ==
PROVIDERS: PCP Nurse Practitioner Family; Visit Provider Nurse Practitioner Family
DX: I49.3 Ventricular premature depolarization (principal); R00.2 Palpitations
CPT/HCPCS: 93010; 99214

== ENCOUNTER → 2024-02-20 13:04 | Outpatient (BNVA) | payer OTHER, SELFPAY | PROVIDERS: PCP Nurse Practitioner Family; Visit Provider Nurse Practitioner Family | DX: I49.3 Ventricular premature depolarization (principal); R00.2 Palpitations | CPT/HCPCS: 93005; 99212 ==

== ENCOUNTER 2024-02-27 12:52 | Outpatient (REF) | payer OTHER, SELFPAY ==
--- NOTE | ~2024-02-27 | US_ITS ---
EXAMINATION: US RETROPERITONEAL COMPLETE (RENAL) CLINICAL INFORMATION: Dysuria. COMPARISON: None available. TECHNIQUE: Real-time imaging of the kidneys and bladder. FINDINGS: RIGHT KIDNEY: 11.3 x 5.5 x 6.2 cm (SAG x AP x TRV). The kidney is normal in size, contour, and echogenicity. Renal cortical thickness is normal. No calculi or focal parenchymal lesions. No hydronephrosis. LEFT KIDNEY: 12.9 x 6.4 x 5.2 cm (SAG x AP x TRV). The kidney is normal in size, contour, and echogenicity. Renal cortical thickness is normal. No calculi or focal parenchymal lesions. No hydronephrosis. BLADDER: Well distended and normal. Bilateral ureteral jets are demonstrated. Prevoid bladder volume is 275 mL. Postvoid bladder volume is 25 mL. US/US retroperitoneal comp IMPRESSION: Normal exam.
[2024-02-27 16:07] LABS: MANUAL DIFF FLAG NO
[2024-02-27 16:17] LABS: Basophils Percent Auto 0.5 % (0-2); Eosinophils Absolute Auto 0.2 X10*3/uL (0.0-0.4); Eosinophils Percent Auto 3.2 % (0-4); Hemoglobin 14.7 g/dl (14.0-18.0); Imm Gran Abs Auto 0.02 X10*3/uL (0.00-0.03); Imm Gran Pct Auto 0.4 % (0.0-0.4); Lymphocytes Absolute Auto 1.8 X10*3/uL (1.2-4.9); Mean Corpuscular HGB Conc 34.2 g/dl (31.0-36.0); Mean Corpuscular Volume 96.4 fL (80.0-98.0); Mean Platelet Volume 11.8 fL (9.4-12.4); Monocytes Absolute Auto 0.6 X10*3/uL (0.1-1.2); Monocytes Percent Auto 9.8 % (2-11); Neutrophils Percent Auto 54.1 % (45-73); Platelet Count 146 X10*3/uL (160-400); Red Blood Count 4.46 X10*6/uL (4.60-5.80); Red Cell Distribution Width 12.6 % (11.0-16.0); White Blood Count 5.6 X10*3/uL (4.8-10.8)
[2024-02-27 16:26] LABS: Alanine Aminotransferase 209 U/L (0-40); Albumin Level 3.8 g/dL (3.5-5.0); Alkaline Phosphatase 77 U/L (39-117); Anion Gap 13 (12-20); Aspartate Amino Transferase 339 U/L (5-37); Bilirubin Total 0.2 mg/dL (0.0-1.0); Blood Urea Nitrogen 13 mg/dL (9-16); Calcium 9.1 mg/dL (8.4-10.2); Carbon Dioxide 22 mmol/L (22-29); Chloride 107 mmol/L (96-108); Cholesterol 171 mg/dL (<200); Estimated Glomerular Filt Rate > 60; Glucose Fasting 86 mg/dL (60-99); HDL Cholesterol 24 mg/dL (>40); Potassium 3.9 mmol/L (3.3-5.1); Sodium 138 mmol/L (135-145); Total Protein 6.2 g/dL (6.5-8.0); Triglycerides 590 mg/dL (<150)
[2024-02-27 16:41] LABS: Prostate Specific Antigen 0.61 ng/mL (<0.05-4.0)
== END 2024-02-27 12:53 | disposition home or self-care (01) ==
LOC: HO.HMGCX 12:52
PROVIDERS: Nurse Practitioner Family; PCP Nurse Practitioner Family; Visit Provider Nurse Practitioner Family
DX: R30.0 Dysuria (principal); Z87.898 Personal history of other specified conditions; N41.9 Inflammatory disease of prostate, unspecified; I49.3 Ventricular premature depolarization; R00.2 Palpitations
CPT/HCPCS: 36415; 76770; 80053; 80061; 84153; 85025

== ENCOUNTER 2024-03-04 14:44 | Outpatient (AMB) | payer OTHER, SELFPAY ==
--- NOTE | 2024-03-04 14:53 | A.OFFVIS_ITS ---
Intake Visit Reasons: 1m/US/PSA(pending 02/26) Intake Note: Patient is Present for PVR/ Urology Med: Alfuzosin Antibiotic Allergy:Penicillin Blood Thinner: None Last PVR: 47 Todays PVR:43 Allergies penicillin V Allergy (Unknown, Verified 03/04/24 21:03) hot,nausea,dizzy, rash Penicillins [PENICILLINS] Adverse Reaction (Intermediate, Verified 03/04/24 21:03) NAUSEA/HEADACHE FEVER Medication List - Last Reconciled 03/04/24 by AKBAR Gutierrez gabapentin 1,200 mg PO BID ixekizumab (Taltz Autoinjector) mg subcut propranolol ER 120 mg PO DAILY tamsulosin 0.4 mg PO BEDTIME 90 days Viagra (sildenafil) 50 mg (2 x 25 mg) PO .PRN PRN 30 days NS HPI Comments Details: Pasquale is a very pleasant 48-year-old male patient of Dr. Mims who was accompanied by his significant other at today's office visit. He has a past medical history of psoriasis, recurrent ear infections, and PVC's. He presents to the office today for follow-up of his ongoing lower urinary tract symptoms and prostatitis. Of note, patient was seen approximately 6 weeks ago at which time he was treated for prostatitis given lower urinary tract symptoms and in office JAVI noted boggy prostate. He reports he has since completed antibiotic therapy and short term steroids as prescribed. He reports noting a significant improvement in lower urinary tract symptoms he had been experiencing. He reports noting significant improvement in his urinary stream with tamsulosin and wishes to continue this medication at this time. Recent retroperitoneal ultrasound results reviewed with the patient and his significant other today. Bilateral kidneys with no calculi, lesions, and or hydronephrosis. The bladder is well distended and normal. Bilateral ureteral jets are demonstrated. Pre void bladder volume is approximately 275 mL. Postvoid bladder volume is approximately 25 mL. Recent PSA results reviewed with the patient today 03/05 0.6. In office urinalysis results reviewed with the patient today. PVR 43 mL. He discusses following up with cardiology in discussing his erectile dysfunction at which time recommendations were made for discussion with Urology for further assessment evaluation. He reports noting issues with maintaining his erections. He does report sexual desire and is able to obtain erections however feels maintaining erections to be difficult. He otherwise denies incontinence, nocturia, hematuria, foul smelling urine, changes to urinary stream, flank pain, fever, and or chills. He otherwise offers no other issues or concerns at this time. [facility] Medical History Psoriasis History of ear infections PVC (premature ventricular contraction) Surgical History Hx of tonsillectomy Social History Alcohol intake: unknown Substance Use Type: Marijuana Review of Systems Const Reports as per HPI Eyes Reports no additional complaints ENT Reports as per HPI Card Reports as per HPI Resp Reports no additional complaints GI Reports no additional complaints Reports as per HPI Musc Reports no additional complaints Skin/Breast Reports as per HPI Neuro Reports no additional complaints Psych Reports no additional complaints Endo Reports no additional complaints Tito/Lymph Reports no additional complaints Aller/Immun Reports no additional complaints Physical Exam Const General: cooperative, healthy appearing, comfortable, no acute distress, well developed, alert and awake Orientation/consciousness: patient oriented x3 Limitations: no limitations HEENT Head: Yes normal to inspection, Yes normocephalic and Yes atraumatic Ears: hearing grossly normal bilaterally Eyes General: appearance normal, both eyes and all related structures Neck Neck: Yes normal visual inspection and Yes trachea midline Chest Chest palpation & inspection: normal inspection of the chest Resp Effort & Inspection: normal respiratory effort and able to speak in complete sentences Cardio Rate: regular rate GI Inspection: Yes normal to inspection General: Yes no CVA tenderness Back/Spine/Pelvis Back: no CVA tenderness Skin General skin exam: no rashes or lesions noted Neuro General: patient oriented x3 Extrem General: Yes normal to inspection Psych Appearance: grossly normal and well kempt Mental Status: mental status grossly normal Speech and movement: Normal speech and movement present and Clear speech present Affect: normal affect Attitude: cooperative Thought process: Normal thought process present Thought content: Normal thought content present Insight: Fair insight present (Psych) Judgement: Fair judgement present (Psych) Office Procedures Post Void Residual Post Residual Void Post Void Residual (PVR): 43 [id number]-[id number] Void Residual by ultrasound Results Reviewed Results Reviewed: Date of Service: 02/27/24 EXAMINATION: US RETROPERITONEAL COMPLETE (RENAL) FINDINGS: RIGHT KIDNEY: 11.3 x 5.5 x 6.2 cm (SAG x AP x TRV). The kidney is normal in size, contour, and echogenicity. Renal cortical thickness is normal. No calculi or focal parenchymal lesions. No hydronephrosis. LEFT KIDNEY: 12.9 x 6.4 x 5.2 cm (SAG x AP x TRV). The kidney is normal in size, contour, and echogenicity. Renal cortical thickness is normal. No calculi or focal parenchymal lesions. No hydronephrosis. BLADDER: Well distended and normal. Bilateral ureteral jets are demonstrated. Prevoid bladder volume is 275 mL. Postvoid bladder volume is 25 mL. IMPRESSION: Normal exam. Assessment & Plan Assessment & Plan (1) Prostatitis: Code(s): N41.9 - Inflammatory disease of prostate, unspecified Category: Medical (2) Erectile dysfunction: Code(s): N52.9 - Male erectile dysfunction, unspecified Category: Medical Plan In office urinalysis results reviewed with the patient today; as noted above. PVR 43 mL. Recent retroperitoneal ultrasound results reviewed with the patient today; as noted above. Recent PSA results reviewed with the patient today; as noted above. Continue Flomax as discussed and prescribed. Prescription provided for p.r.n. Viagra; patient requesting no substitution; discussed potential for increase in cost. He is aware. Discussed at length lifestyle modifications to assist with erectile dysfunction. Discussed potential for near future in office cystoscopy if symptoms arise. Will obtain testosterone free and total Follow-up in 3 months with labs to be completed prior; or sooner with any issues, concerns, and or questions. Orders: Orders AMB Post Void Residual by ultrasound 03/04/24 AKBAR Gutierrez Z87.898 - Personal history of other specified conditions AMB Urinalysis Automated 03/04/24 AKBAR Gutierrez Z13.9 - Encounter for screening, unspecified Referrals Gastroenterology Referral RUPESH Ruth R79.89 - Other specified abnormal findings of blood chemistry Medications: New tamsulosin 0.4 mg PO BEDTIME 90 caps 1RF 90 days AKBAR Gutierrez N40.1 - Benign prostatic hyperplasia with lower urinary tract symptoms, R35.1 - Nocturia Changed From sildenafil administer 30 minutes to 4 hours before activity 25 mg PO DAILY 14 days PRN 14 tabs 0RF sexual activity To Viagra (sildenafil) administer 30 minutes to 4 hours before activity 50 mg (2 x 25 mg) PO .PRN 30 days PRN 12 tabs 4RF sexual activity NS AKBAR Gutierrez Discontinued flecainide LAST REFILL. OVERDUE FOR APPT. PLEASE CALL [phone] TO SCHEDULE AN APPT SO WE CAN REFILL THIS MED. Discontinued Reason: Doctor's Order 100 mg PO BID 90 days 180 tabs 0RF alfuzosin ER Take before bedtime Discontinued Reason: Doctor's Order 10 mg PO BEDTIME 30 days 30 tabs 1RF N32.0 - Bladder-neck obstruction, N40.1 - Benign prostatic hyperplasia with lower urinary tract symptoms, R33.9 - Retention of urine, unspecified, R35.1 - Nocturia, R39.12 - Poor urinary stream Patient Instructions: The patient had an opportunity to ask questions regarding the treatment plan. All questions were answered. Physical exam, labs, and imaging were discussed and reviewed in detail. As well as risks, benefits, and discussion of treatment choices. No major barriers to understanding were identified. The patient expressed understanding and agreement with the above treatment plan. The patient was made aware they should contact our office by phone for worsening of their current condition, the appearance of new symptoms, or with any questions or concerns. Compliance is encouraged with any medications and follow up testing that is ordered. It is a privilege to be allowed the opportunity to participate in? your urological care.? Again, if you have any questions or concerns If you have any questions or concerns please do not hesitate to contact me. The office is [phone]. This note is constructed using voice recognition software. While every effort has been made to ensure accuracy sheet metal duct installer errors may have been included. Yours sincerely, AKBAR Gutierrez Coding Level of Care Code Est Pt Level 4 (15284) Diagnoses Prostatitis N41.9 Erectile dysfunction N52.9 CPT Codes Post Residual Void - PVR CPT Code: 41474-Nuyu Void Residual by ultrasound ([id number])
== END 2024-03-04 15:31 | disposition home or self-care (01) ==
PROVIDERS: PCP Nurse Practitioner Family; Visit Provider Nurse Practitioner Family
DX: N41.9 Inflammatory disease of prostate, unspecified (principal); N52.9 Male erectile dysfunction, unspecified
CPT/HCPCS: 99214

== ENCOUNTER → 2024-03-04 14:44 | Outpatient (BNVA) | payer OTHER, SELFPAY | PROVIDERS: PCP Nurse Practitioner Family; Visit Provider Nurse Practitioner Family | DX: N41.9 Inflammatory disease of prostate, unspecified (principal); N52.9 Male erectile dysfunction, unspecified | CPT/HCPCS: 51798; 99212 ==

== ENCOUNTER 2024-03-17 14:24 | Outpatient (AMB) | payer OTHER, SELFPAY ==
[2024-03-17 14:30] VITALS: BP 120/80; PULSE 98; TEMP 36.1; O2SAT 97; BMI 28.6
--- NOTE | 2024-03-17 14:30 | AM.OFFWIN_ITS ---
Intake Vital Signs 03/17/24 14:30 Height 5 ft 9 in Weight 194 lb BMI 28.6 BP 120/80 Blood Pressure Location Lt brachial Position Sitting Pulse 98 Pulse Source Pulse Oximeter Temp 97.0 F Temp Source Temporal Artery Scan Pulse Oximetry (%) 97 Oxygen Delivery Method Room Air Intake Visit Reasons: EP RT ear/face pain redness Intake Note: pt is here today for rt bear face pain redness started 1 week ago Patient Tobacco Use Status: Current everyday Tobacco user Allergies penicillin V Allergy (Unknown, Verified 03/17/24 14:33) hot,nausea,dizzy, rash Penicillins [PENICILLINS] Adverse Reaction (Intermediate, Verified 03/17/24 14:33) NAUSEA/HEADACHE FEVER Do you need a note to return to daycare/school/sports/work: No HPI HPI Comments History of Present Illness Details 48-year-old male complaining of right ea r pain and facial swelling for the last week. The patient has a long past medical history of ENT visits myringotomy and ear infections. The patient currently is seeking an ENT specialist. Today his biggest complaint is right ear pain and facial swelling PFSH Medical History Psoriasis History of ear infections PVC (premature ventricular contraction) Surgical History Hx of tonsillectomy Social History Alcohol intake: unknown Patient Tobacco Use Status: Current everyday Tobacco user Substance Use Type: Marijuana Review of Systems Const All systems reviewed & are unremarkable except as noted in HPI and below Physical Exam Vital Signs: Last Vital Signs Temp 97.0 F 03/17/24 14:30 Pulse 98 03/17/24 14:30 BP 120/80 03/17/24 14:30 Pulse Ox 97 03/17/24 14:30 Oxygen Delivery Method Room Air 03/17/24 14:30 BMI result Body Mass Index 28.6 Const General: healthy appearing and acute distress mild HEENT Head: Yes normocephalic and Yes atraumatic Ears: hearing grossly normal bilaterally, external ears normal and TM abnormal bulging, wth effusion and erythematous General nose exam: Normal external nose present Face and sinus: Yes erythema (Right cheek) Throat: Yes posterior oropharynx normal Resp Effort & Inspection: normal respiratory effort Cardio Rate: regular rate Rhythm: regular rhythm Assessment & Plan Assessment & Plan (1) Otitis media: Code(s): H66.90 - Otitis media, unspecified, unspecified ear Qualifiers: Chronicity: acute Laterality: right Otitis media type: suppurative Recurrence: recurrent Spontaneous tympanic membrane rupture: without spontaneous rupture Qualified Code(s): H66.004 - Acute suppurative otitis media without spontaneous rupture of ear drum, recurrent, right ear Plan Patient requesting Augmentin as he is taken it several times before even though he shows a penicillin allergy. It was also recommended he seek ENT specialist consider [facility] in [place] for evaluation Medications: New amoxicillin-pot clavulanate 875-125 mg 1 tab PO Q12H 14 tabs 0RF Coding Level of Care Code Est Pt Level 3 (69557) Diagnoses Recurrent acute suppurative otitis media of right ear without spontaneous rupture of tympanic membrane H66.004 Chronicity: acute Laterality: right Otitis media type: suppurative Recurrence: recurrent Spontaneous tympanic membrane rupture: without spontaneous rupture
== END 2024-03-17 16:26 | disposition home or self-care (01) ==
PROVIDERS: PCP Nurse Practitioner Family; Visit Provider Physician Assistant Medical
DX: H66.004 Acute suppurative otitis media without spontaneous rupture of ear drum, recurrent, right ear (principal)
CPT/HCPCS: 99213

== ENCOUNTER 2024-08-30 20:26 | Emergency (ER) | payer OTHER, SELFPAY ==
[2024-08-30 20:41] VITALS: BP 124/87; PULSE 72; RESP 18; TEMP 36.6; O2SAT 98
[2024-08-30 20:46] VITALS: BMI 26.0
[2024-08-30 21:30] LABS: MANUAL DIFF FLAG NO
[2024-08-30 21:31] LABS: Basophils Percent Auto 0.4 % (0-2); Eosinophils Absolute Auto 0.1 X10*3/uL (0.0-0.4); Eosinophils Percent Auto 0.9 % (0-4); Hematocrit 46.1 % (42.0-52.0); Hemoglobin 15.7 g/dl (14.0-18.0); Imm Gran Abs Auto 0.04 X10*3/uL (0.00-0.03); Imm Gran Pct Auto 0.4 % (0.0-0.4); Lymphocytes Absolute Auto 1.7 X10*3/uL (1.2-4.9); Lymphocytes Percent Auto 17.3 % (20-40); Mean Corpuscular HGB Conc 34.1 g/dl (31.0-36.0); Mean Corpuscular Hemoglobin 32.2 pg (27.0-33.0); Mean Corpuscular Volume 94.7 fL (80.0-98.0); Mean Platelet Volume 10.2 fL (9.4-12.4); Monocytes Absolute Auto 0.9 X10*3/uL (0.1-1.2); Neutrophils Absolute Auto 7.2 x10*3/uL (2.0-8.3); Platelet Count 161 X10*3/uL (160-400); Red Blood Count 4.87 X10*6/uL (4.60-5.80); Red Cell Distribution Width 12.8 % (11.0-16.0)
[2024-08-30 21:52] LABS: Alanine Aminotransferase 24 U/L (0-40); Albumin Level 3.9 g/dL (3.5-5.0); Alkaline Phosphatase 88 U/L (39-117); Anion Gap 10 (12-20); Aspartate Amino Transferase 24 U/L (5-37); Bilirubin Total 0.3 mg/dL (0.0-1.0); Blood Urea Nitrogen 15 mg/dL (9-16); Calcium 9.1 mg/dL (8.4-10.2); Carbon Dioxide 25 mmol/L (22-29); Chloride 109 mmol/L (96-108); Creatinine Clr Calc Pharmacy 100.3; Estimated Glomerular Filt Rate > 60; Ethanol < 10 mg/dL; Glucose Random 116 mg/dL (60-115); Potassium 4.2 mmol/L (3.3-5.1); Sodium 140 mmol/L (135-145); Total Protein 6.7 g/dL (6.5-8.0)
--- NOTE | 2024-08-30 22:57 | PC.NURSE ---
Vanessa can be reached at [phone]
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
[2024-08-31 01:45] VITALS: BP 123/81; PULSE 67; RESP 19; TEMP 36.6; O2SAT 98
== END 2024-08-31 01:45 | disposition home or self-care (01) ==
PROVIDERS: Emergency Provider Emergency Medicine Emergency Medical Services
DX: G47.00 Insomnia, unspecified (principal); F41.9 Anxiety disorder, unspecified; F43.10 Post-traumatic stress disorder, unspecified; F17.200 Nicotine dependence, unspecified, uncomplicated; Z79.899 Other long term (current) drug therapy
CPT/HCPCS: 36415; 80053; 80307; 85025; 99283; 99284